=== PATIENT | male | born 1950 | race Caucasian/White ===

== ENCOUNTER → 2016-04-19 | Outpatient (CLI) | payer MEDICAID ==
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
== END ==
LOC: FIMAGING 12:34
DX: M79.89 Other specified soft tissue disorders (principal); T33.831A Superficial frostbite of right toe(s), initial encounter

== ENCOUNTER 2017-05-12 17:02 | Inpatient (IN) | payer MEDICAID, OTHER ==
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
[2017-05-12 19:39] LABS: PLATELET COUNT 243 10^3/uL (150-400)
[2017-05-12] MEDS ORDERED: VANCOMYCIN HCL/NORMAL SALINE 250 ML IV ONE (20:28)
[2017-05-12] MEDS ORDERED: IBUPROFEN 200 MG TAB PO PRN (20:33)
[2017-05-12] MEDS ORDERED: ONDANSETRON DISINTEGRATING 4 MG TAB PO PRN (20:33)
[2017-05-12] MEDS ORDERED: ONDANSETRON 4 MG/2 ML VIAL IVP PRN (20:33)
--- NOTE | 2017-05-12 21:53 | PDGENHP ---
History and Physical - Chief Complaint Acute leg pain - History of Present Illness Primary care provider: Dr. Ayala [facility] HPI: 66-year-old male presenting with acute leg pain located in the bilateral distal lower extremities with associated weeping along the dorsal aspect of the feet, dusky hue to digits 1-3 on the right and digit 1 on the left, and lymphangitic streaking located along the medial surface of the bilateral lower extremities. The patient reports the onset of symptoms was approximately 1 week ago and was associated with subjective fevers and chills. Duration has been persistent thereafter. The pain is exacerbated by standing and ambulating. The pain is alleviated by rest. The patient does not like narcotic pain medications and does not want to receive any at this time. He has otherwise been taking all of his home medications. [place] and has had regular exposure to the cold. 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 Scabies - Surgical History Additional surgical history: No lower extremity surgeries - Family History Additional family history: Patient does not know of any family illnesses - Social History Smoking Status: Heavy smoker Alcohol Use: Heavy (Recently 120 days sober, the patient recently relapsed) Drug Use: None Additional social history: Homeless, [place] bridge Review of Systems Review of Systems: ROS: 10pt was reviewed & negative except for what was stated in HPI & below Cardiac: Reports: edema (Bilateral lower extremity) Muscolosketal: Reports: other (Bilateral leg pain) Skin: Reports: change in color (Lymphangitic streaking bilateral lower extremities), other (Weeping along the toes, dusky appearance) Physical Exam Physical Exam: Temp Pulse Resp BP Pulse Ox 36.7 C 90 16 148/76 H 99 05/12/17 17:11 05/12/17 17:11 05/12/17 17:11 05/12/17 17:11 05/12/17 17:11 Constitutional: no apparent distress, not in pain, chronically ill appearing, uncomfortable Eyes: PERRL, anicteric sclera, EOMI Ears, Nose, Mouth, Throat: moist mucous membranes, hearing normal, ears appear normal, no oral mucosal ulcers Cardiovascular: edema (Trace bilateral lower extremity), other (Diminished pulses bilateral dorsalis pedis), No systolic murmur, No irregularly irregular, No tachycardia Respiratory: reduced air movement (On expiration bilaterally), No expiratory wheeze, No inspiratory crackles, No bronchial breath sounds, No respiratory distress Gastrointestinal: normoactive bowel sounds, distension (Moderate), No tenderness , No guarding Skin: other (Some scattered abrasions bilateral lower extremities, erythema along the dorsal aspects of the feet with dusky appearance the 1st 3 digits on the right, 1st digit on the left, open weeping sores on the dorsum of the right foot) Musculoskeletal: other (Limited dorsiflexion bilateral feet secondary to soft tissue edema and pain) Neurologic: AAOx3, other (Bilateral upper extremity tremulousness), No sensation intact bilaterally (Paresthesias distal bilateral lower extremities along the toes), No weakness (Motor strength 5/5 bilateral hip flexion), No asterixes Psychiatric: interacting appropriately, not anxious, not encephalopathic, thought process linear Lymph, Heme, Immunologic: lymphangitic streaking (Bilateral calves, nontender, shoddy lymph nodes bilateral inguinal chains) Lab Data & Imaging Review 05/12/17 19:27 05/12/17 19:27 WBC 16.12 10^3/uL (3.80-9.50) H 05/12/17 19:27 RBC 3.66 10^6/uL (4.40-6.38) L 05/12/17 19:27 Hgb 10.8 g/dL (13.7-17.5) L 05/12/17 19:27 Hct 32.4 % (40.0-51.0) L 05/12/17 19:27 MCV 88.5 fL (81.5-99.8) 05/12/17 19: MCH 29.5 pg (27.9-34.1) 05/12/17 19:27 MCHC 33.3 g/dL (32.4-36.7) 05/12/17: RDW 14.3 % (11.5-15.2) 05/12/17: Plt Count 243 10^3/uL (150-400) 05/12/17 MPV 9.5 fL (8.7-11.7) 05/12/17: Neut % (Auto) 82.8 % (39.3-74.2) H 05/12/17: Lymph % (Auto) 8.7 % (15.0-45.0) L 05/12/17: [place] % (Auto) 7.6 % (4.5-13.0) 05/12/17: Eos % (Auto) 0.1 % (0.6-7.6) L 05/12/17: Baso % (Auto) 0.2 % (0.3-1.7) L 05/12/17 Nucleat RBC Rel Count 0.0 % (0.0-0.2) 05/12/17 Absolute Neuts (auto) 13.34 10^3/uL (1.70-6.50) H 05/12/17: Absolute Lymphs (auto) 1.41 10^3/uL (1.00-3.00) 05/12/17: Absolute Monos (auto) 1.23 10^3/uL (0.30-0.80) H 05/12/17: Absolute Eos (auto) 0.02 10^3/uL (0.03-0.40) L 05/12/17: Absolute Basos (auto) 0.03 10^3/uL (0.02-0.10) 05/12/17: Absolute Nucleated RBC 0.00 10^3/uL (0-0.01) 05/12/17 Immature Gran % 0.6 % (0.0-1.1) 05/12/17: Immature Gran # 0.09 10^3/uL (0.00-0.10) 05/12/17: Sodium 135 mEq/L (135-145) 05/12/17 19:27 Potassium 3.9 mEq/L (3.5-5.2) 05/12/17: Chloride 98 mEq/L (97-110) 05/12/17: Carbon Dioxide 19 mEq/l (22-31) L 05/12/17: Anion Gap 18 mEq/L (8-16) H 05/12/17: BUN 14 mg/dL (7-23) 05/12/17: Creatinine 1.0 mg/dL (0.7-1.3) 05/12/17 19: Estimated GFR > 60 05/12/17: Glucose 98 mg/dL (70-100) 05/12/17: Calcium 9.0 mg/dL (8.5-10.4) 05/12/17 19:27 Assessment & Plan Assessment: 66-year-old male presents with bilateral lower extremity cellulitis in the setting of bilateral lower extremity wounds in the setting of exposure Plan: 1. Cellulitis. Acute, new problem this provider, further workup indicated. Located in the bilateral lower extremities, very clearly associated with skin sloughing and skin breakdown on the right lower extremity, less obvious on the left lower extremity, but both ft definitely have confluency erythema along the dorsum with bilateral lymphangitis streaking, and the patient has significant exposure to the elements and small areas of ulcerations -discussed with Dr. Elkin Hobson, given the extent of the infection, and many encounters with the healthcare system, the patient is at risk for MRSA, we agreed to administer IV vancomycin and gauge effect -get ID consultation -blood culture sent, monitor white blood cell count, currently does not have evidence of sepsis -get x-rays as initial evaluation of possible osteomyelitis underneath the distal dusky toes -get arterial brachial index given the possibility of vascular wounds, if unable to obtain, then get CT angio with runoff -get wound consultation 2. Neuropathy. 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 Alcoholism. Chronic, reviewed outside records including 09/04/2015 discharge summary by Maura Thomas, she discussed patient's reluctance to discontinue alcohol at that time, we have counseled the patient heavily in the past regarding the effect of his alcoholism on his mobility and strength, and given that the patient is currently being admitted for lower extremity pain and difficulty ambulating, recommend complete sobriety -placed on CIMT protocol 4. COPD. No evidence of acute exacerbation, continue monitor 5. Hypertension. Chronic, hold lisinopril given the patient is currently tachycardic and fighting off infection Diet. Regular Prophylaxis. High risk patient, Lovenox 40 Code. Full Disposition. Anticipated discharge uncertain this time, anticipated length stay is greater than 48 hr warranting inpatient admission status for reasonable medical necessity including severe cellulitis requiring infectious disease, wound care consultation, possible general surgery depending on what the workup reveals.
[2017-05-12] MEDS ORDERED: LORazepam 1 MG TAB PO PRN (22:21)
[2017-05-12] MEDS ORDERED: LORazepam 2 MG/ML INJ IVP PRN (22:21)
[2017-05-12] MEDS: GABAPENTIN 300 MG CAP PO SCH (22:58)
--- NOTE | 2017-05-12 23:48 | PDMN ---
Medical Necessity Medical necessity: C/M review: Patient meets INPT criteria under [facility] M-70 Cellultiis; Acute and persistent bilateral lower extremity severe cellulitis, WBC 16.12, requiring planned Infectious disease consult, Wound care consult, IV Thiamine, ongoing IV Vancomycin, CIWA protocol, acute inpt PT/OT, comorbid neuropathy, alcoholism, COPD, hypertension, patient heavy smoker, homelessness. MD anticipates > 2 MN LOS for ongoing med nec for eval and TX of above.
[2017-05-13 05:34] LABS: PLATELET COUNT 233 10^3/uL (150-400)
[2017-05-13] MEDS: ENOXAPARIN 40 MG/0.4 ML SYR SC SCH (09:31)
[2017-05-13] MEDS: VANCOMYCIN HCL/NORMAL SALINE 250 ML IV SCH ×2 (09:31→21:29)
[2017-05-13] MEDS: ASPIRIN EC 81 MG TAB PO SCH (09:31)
[2017-05-13] MEDS: SERTRALINE HCL 100 MG TAB PO SCH (09:31)
[2017-05-13] MEDS ORDERED: ALTEPLASE 2 MG VIAL IVP PRN (09:53)
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
--- NOTE | 2017-05-13 11:14 | HOSPPROG ---
Hospitalist Progress Note Assessment/Plan: 66-year-old male presents with bilateral lower extremity cellulitis in the setting of bilateral lower extremity wounds in the setting of exposure. Today is my 1st encounter with the patient. Reviewed his care with Dr Williamson. * bilateral foot cellulitis with associated lymphangitic streaking -on vancomycin/ see Dr Williamson's consult -blood cx pending -culture of large ulceration sent *Homelessness -needs shoes, case management aware * alcohol use and abuse -on [facility] protocol -usually drinks vodka, prefers to abstain at this time * COPD -no exacerbation * hypertension -bp overall stable * neuropathy -chronic/on gabapentin *anemia -will follow *dvt prophylaxis: ambulation, consider lmwh if needed Subjective: [place]tar has no complaints. Objective: Vital Signs Temp Pulse Resp BP Pulse Ox 37.0 C 87 16 147/66 H 94 05/13/17 07:36 05/13/17 07:36 05/13/17 07:36 05/13/17 07:36 05/13/17 07:36 Laboratory Results 05/13/17 05:00 05/13/17 05:00 - Physical Exam Constitutional: not in pain, chronically ill appearing Eyes: PERRL Ears, Nose, Mouth, Throat: hearing normal Cardiovascular: regular rate and rhythym Respiratory: no respiratory distress Gastrointestinal: normoactive bowel sounds Skin: warm, other (bilateral big toes dusky, skin cool, ulcer on bottom right foot) Musculoskeletal: full muscle strength Neurologic: AAOx3 Psychiatric: interacting appropriately ICD10 Worksheet Patient Problems: Problems Problem Status Onset Cellulitis Acute Acute hypoxemic respiratory failure Acute Alcohol intoxication Acute Alcohol withdrawal Acute Bronchitis Acute Chronic obstructive pulmonary disease with acute exacerbation Acute Weakness Acute
[2017-05-13] MEDS: THIAMINE HCL 500 MG in NS 250 ML IV SCH (14:04)
[2017-05-13] MEDS ORDERED: LIDOCAINE 1% 300 MG/30 ML SDV ONE (14:06)
[2017-05-13] MEDS: ACETAMINOPHEN 325 MG TAB PO PRN (16:37)
--- NOTE | 2017-05-13 16:48 | ASMTCMCOM ---
CM Note CM Note Notes: Pt is a homeless gentleman who has a hx of etoh, had been sober but recently had a relapse. Pt [place] and now has bilateral foot cellulitis. Pt thinks it may be due to ill fitting shoes, MD request CM to find pt some better shoes. CM attempted to speak w/pt to ask shoe size but he was fast asleep. He is currently on IV abx, CM w/f. PT recommends SNF, OT pending CM will continue to follow, Medicaid in chart but pt is 66, wondering if he has Medicare. DC Plan: TBD Date Signed: 05/13/2017 04:48 PM Electronically Signed By:Prachi Hermosillo RN
[2017-05-13] MEDS: VANCOMYCIN 1 GM in NS 250 ML IV SCH ×2 (20:26→20:36)
[2017-05-13] MEDS: GABAPENTIN 300 MG CAP PO SCH (20:26)
[2017-05-14 05:07] LABS: PLATELET COUNT 226 10^3/uL (150-400)
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
[2017-05-14] MEDS: ENOXAPARIN 40 MG/0.4 ML SYR SC SCH (08:52)
[2017-05-14] MEDS: THIAMINE HCL 500 MG in NS 250 ML IV SCH (08:52)
[2017-05-14] MEDS: SERTRALINE HCL 100 MG TAB PO SCH (08:53)
[2017-05-14] MEDS: ASPIRIN EC 81 MG TAB PO SCH (08:53)
[2017-05-14] MEDS: VANCOMYCIN 1 GM in NS 250 ML IV SCH (11:00)
--- NOTE | 2017-05-14 11:17 | WOCRNPDOC ---
[facility] Advanced Assessment Note - Skin Integrity Problem, Advanced Assess Right Toe Dressing Type: Open to Air Exudate Amount: Scant (on dorsum of R 3rd toe) Exudate Color: Reddish/Yellow Exudate Characteristic(s): Dried Ant Wound Tissue: Ecchymotic (dusky, consistent w/ frostbite) Ant Wound Swelling: Mild Wound Bed Color: Purple, Red Wound Bed Constitution: De-roofed Serous Blister, Intact Sanguineous Blister Site Odor: None Site Measurement - Head-to-Toe Length X Width X Depth (cm): R 1st toe(plantar): [id number]. R 1st toe (dorsal) 1cmx1.2cmx blister. R 2nd toe (medial): 0.5cmx0.6cmx blister. R 2nd toe (dorsal): [id number] blister. R 3rd toe ( dorsal): 0.5cmx0.5cmx0.1cm Pulse Location & Description: faint DP palpable Extremity Temperature: Warm Skin Integrity Problem Comment: Intact blisters noted to both dorsal and plantar aspects of patient's R 1st, 2nd, and 3rd toes, apperance consistent w/ frostbite. Underlying skin is purple, dusky, on distal apects of toes. Blisters are mostly intact, w/ exception of R 3rd toe. They appear to be serous-filled, indicating that the damage might be superficial. Patient does c/o pain and tenderness during assessment, extending onto to dorsum of his R foot. No significant swelling or ant-wound erythema. Even though faint DP pulse is palpable, general concerns about imparting any moisture to these tissues in the event that there is underlying arterial compromise. Recommend applying Povidone- Iodine when blisters open, and covering open areas w/ Telfa secured w/ Francisco Javier. Wound care will follow up with patient again on Tuesday 05/16.
[2017-05-14] MEDS: TAMSULOSIN HCL 0.4 MG CAP PO SCH (12:12)
--- NOTE | 2017-05-14 12:15 | HOSPPROG ---
Hospitalist Progress Note Assessment/Plan: 66-year-old male presents with bilateral lower extremity cellulitis in the setting of bilateral lower extremity wounds in the setting of exposure. Today is my 1st encounter with the patient. Reviewed his care with Dr Williamson. * bilateral foot cellulitis with associated lymphangitic streaking -on vancomycin/ see Dr Williamson's consult -blood cx no growth -has Doppler pulses/ both feet -culture of large ulceration sent -will get a noninvasive arterial study to further evaluate *Homelessness -needs shoes, case management aware * alcohol use and abuse -on [facility] protocol -usually drinks vodka, prefers to abstain at this time * COPD -no exacerbation *urinary retention -trial of flomax * hypertension -bp overall stable * neuropathy -chronic/on gabapentin *anemia -OB stools -check iron levels -will follow *dvt prophylaxis: ambulation, Subjective: Avtar has significant pain when his feet are touched. Objective: Vital Signs Temp Pulse Resp BP Pulse Ox 37.2 C 91 18 154/76 H 95 05/14/17 11:45 05/14/17 11:45 05/14/17 11:45 05/14/17 11:45 05/14/17 11:45 Microbiology 05/13/17 09:55 Gram Stain - Final Foot - Swab Laboratory Results 05/14/17 04:30 05/14/17 04:30 05/13/17 05/14/17 05/15/17 05:59 05:59 05:59 Intake Total 500 Output Total 700 Balance -200 - Physical Exam Constitutional: chronically ill appearing, No not in pain (to the feet area w touch) Ears, Nose, Mouth, Throat: hearing normal Cardiovascular: regular rate and rhythym Respiratory: no respiratory distress Skin: warm, other (both big toes are dusky in color, unable to palp pulses but can doppler them) Musculoskeletal: generalized weakness Neurologic: AAOx3 Psychiatric: interacting appropriately ICD10 Worksheet Patient Problems: Problems Problem Status Onset Cellulitis Acute Acute hypoxemic respiratory failure Acute Alcohol intoxication Acute Alcohol withdrawal Acute Bronchitis Acute Chronic obstructive pulmonary disease with acute exacerbation Acute Weakness Acute
[2017-05-14] MEDS: GABAPENTIN 300 MG CAP PO SCH (21:55)
[2017-05-14] MEDS: VANCOMYCIN HCL/NORMAL SALINE 250 ML IV SCH (21:55)
[2017-05-14] MEDS: FERROUS SULFATE 325 MG TAB PO SCH (21:55)
[2017-05-15 03:01] LABS: HIV TYPE 1 AND 2 NEGATIVE (NEGATIVE)
--- NOTE | 2017-05-15 09:48 | PCMIDPN ---
Assessment/Plan: Assessment: Bilateral lower extremity foot duskiness with presentation with right lower extremity lymphangitis. Lymphangitis is now resolved. The duskiness in his toes I believe is secondary to frostbite and frostnip. I think it is reasonable to do the angiogram runoff study to evaluate large vessel flow. Given that his DP pulses bilaterally or Doppler only I suspect we may see some arterial narrowing. I do not believe however that that would be causative of his foot and toe duskiness and his enormous sensitivity to touch. Plan: 1. Continue IV vancomycin empirically. 2. Await MRSA nasal swab result. 3. Follow clinical course and arterial test results. 05/15/17 09:45 Subjective: Patient is resting comfortably in his hospital bed. He notes that his right lower extremity erythema and lymphangitis has resolved. Still is exquisitely sensitive in both his feet and lower legs to light touch. No fever or chills. Objective: Vancomycin # 1 Vital Signs Temp Pulse Resp BP Pulse Ox 36.6 C 84 16 148/70 H 94 05/15/17 07:32 05/15/17 07:32 05/15/17 07:32 05/15/17 07:32 05/15/17 07:32 Microbiology 05/13/17 09:55 Gram Stain - Final Foot - Swab Laboratory Results 05/14/17 04:30 05/14/17 04:30 05/14/17 05/15/17 05/16/17 05:59 05:59 05:59 Intake Total 500 440 Output Total 700 2500 Balance -200 -0 - Physical Exam General Appearance: WD/WN, alert, no apparent distress, non-toxic Respiratory: lungs clear, No respiratory distress Cardiac/Chest: regular rate, rhythm, No tachycardia Extremities: swelling, No non-tender, No normal inspection Peripheral Pulses: 0: dorsalis-pedis (R) (Doppler), dorsalis-pedis (L) (Doppler) Skin: normal color, warm/dry, No rash Neuro/Psych: alert, normal mood/affect, oriented x 3 ICD10 Worksheet Patient Problems: Problems Problem Status Onset Cellulitis Acute Acute hypoxemic respiratory failure Acute Alcohol intoxication Acute Alcohol withdrawal Acute Bronchitis Acute Chronic obstructive pulmonary disease with acute exacerbation Acute Weakness Acute
[2017-05-15] MEDS: ASCORBIC ACID 500 MG TAB PO SCH (09:49)
[2017-05-15] MEDS: FERROUS SULFATE 325 MG TAB PO SCH ×2 (09:49→20:48)
[2017-05-15] MEDS: ASPIRIN EC 81 MG TAB PO SCH (09:49)
[2017-05-15] MEDS: ENOXAPARIN 40 MG/0.4 ML SYR SC SCH (09:50)
[2017-05-15] MEDS: TAMSULOSIN HCL 0.4 MG CAP PO SCH (09:50)
[2017-05-15] MEDS: THIAMINE HCL 500 MG in NS 250 ML IV SCH (09:50)
[2017-05-15] MEDS: SERTRALINE HCL 100 MG TAB PO SCH (09:50)
[2017-05-15] MEDS: LISINOPRIL 40 MG TAB PO SCH (11:13)
[2017-05-15] MEDS: VANCOMYCIN HCL/NORMAL SALINE 250 ML IV SCH ×2 (11:13→20:48)
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
--- NOTE | 2017-05-15 17:04 | WOCRNPDOC ---
WOCRN Advanced Assessment Note - Skin Integrity Problem, Advanced Assess Right Toe Dressing Type: Francisco Javier, Telfa Dressing Description: Clean/Dry, Intact Exudate Amount: Minimal Exudate Characteristic(s): Serosanguinous Integumentary Issue Intervention: Visualized Under Dressing Skin Integrity Problem Comment: Right foot toes with blistering that are mostly still intact but starting open on dorsal 3rd and second toes. Great toe intact. Telfa between toes is sticking to wounds. Will change order to mepilex transfer woven between toes. Patient walked with PT today. Wound care will round again later this week.
[2017-05-15] MEDS: ACETAMINOPHEN 325 MG TAB PO PRN (19:06)
[2017-05-15] MEDS: GABAPENTIN 300 MG CAP PO SCH (20:48)
[2017-05-16] MEDS: ENOXAPARIN 40 MG/0.4 ML SYR SC SCH (09:03)
[2017-05-16] MEDS: THIAMINE HCL 100 MG TAB PO SCH (09:03)
[2017-05-16] MEDS: FERROUS SULFATE 325 MG TAB PO SCH ×2 (09:03→20:29)
[2017-05-16] MEDS: ASPIRIN EC 81 MG TAB PO SCH (09:03)
[2017-05-16] MEDS: LISINOPRIL 40 MG TAB PO SCH (09:03)
[2017-05-16] MEDS: TAMSULOSIN HCL 0.4 MG CAP PO SCH (09:04)
[2017-05-16] MEDS: ASCORBIC ACID 500 MG TAB PO SCH (09:04)
[2017-05-16] MEDS: SERTRALINE HCL 100 MG TAB PO SCH (09:04)
[2017-05-16] MEDS ORDERED: VANCOMYCIN 1 GM in NS 250 ML IV SCH (09:30)
--- NOTE | 2017-05-16 10:38 | ASMTCMCOM ---
CM Note CM Note Notes: Case Management will be picking up size 10 shoes for the patient today. CM will follow. Date Signed: 05/16/2017 10:38 AM Electronically Signed By:Karyn Adorno LCSW
--- NOTE | 2017-05-16 12:15 | HOSPPROG ---
Hospitalist Progress Note Assessment/Plan: 66-year-old male presents with bilateral lower extremity cellulitis in the setting of bilateral lower extremity wounds in the setting of exposure. * bilateral foot cellulitis with associated lymphangitic streaking -vancomycin dc today -blood cx no growth -has Doppler pulses/ both feet -culture of large ulceration sent -underlying frostbite *Moderate peripheral vascular disease -reviewed LINDSEY study which is around .70 -will ask surgeon to see, he has had a long hx of significant pain -on aspirin, may benefit from Plavix *Homelessness -needs shoes, case management aware * alcohol use and abuse -no s/sx of withdrawal, will dc CIWA * COPD -no exacerbation *urinary retention -trial of Flomax w good results * hypertension -bp overall stable * neuropathy -chronic/on gabapentin *anemia/ iron deficiency -added oral iron w Vitamin c -OB stools -needs f/u in regards to colonoscopy, but needs treatment for the above *dvt prophylaxis: ambulation *Plan: ask surgery to see Subjective: Avtar says his feet hurt when he walks but the pain subsides after a bit. Objective: Vital Signs Temp Pulse Resp BP Pulse Ox 36.8 C 75 16 104/71 94 05/16/17 08:00 05/16/17 08:00 05/16/17 08:00 05/16/17 09:03 05/16/17 08:00 Microbiology 05/13/17 09:55 Gram Stain - Final Foot - Swab Wound Culture - Final Staphylococcus Lugdunensis Laboratory Results 05/14/17 04:30 05/14/17 04:30 05/15/17 05/16/17 05/17/17 05:59 05:59 05:59 Intake Total 440 1260 Output Total 2500 2875 Balance -2059 - Physical Exam Constitutional: chronically ill appearing, No not in pain Eyes: PERRL Ears, Nose, Mouth, Throat: hearing normal Cardiovascular: regular rate and rhythym Respiratory: no respiratory distress Skin: warm, other (big toes dusky, feet warm) Musculoskeletal: generalized weakness Neurologic: AAOx3 Psychiatric: interacting appropriately, not anxious ICD10 Worksheet Patient Problems: Problems Problem Status Onset Cellulitis Acute Acute hypoxemic respiratory failure Acute Alcohol intoxication Acute Alcohol withdrawal Acute Bronchitis Acute Chronic obstructive pulmonary disease with acute exacerbation Acute Weakness Acute
[2017-05-16] MEDS ORDERED: IOPAMIDOL (ISOVUE-370) 150 ML BTL IV ONE (14:41)
--- NOTE | 2017-05-16 16:37 | ASMTCMCOM ---
CM Note CM Note Notes: Met with patient to give him shoes and discuss possible rehab. Maura Thomas NP is concerned with patient having peripheral vascular disease and wants patient to do some rehab if possible. Patient has Medicare and is working with [facility] to get his social security reinstated. Patient is also working with the [facility] program for housing, Lu Chaprmarta ([phone]). We will need to call her tomorrow to coordinate and make sure they are aware of timelines for care. A referral was sent to [facility] for SNF rehab at Maura's request. OT/PT both recommending SNF rehab. CM will follow. Date Signed: 05/16/2017 04:36 PM Electronically Signed By:Karyn Adorno LCSW
--- NOTE | 2017-05-16 16:43 | PCMIDPN ---
Assessment/Plan: Assessment/Plan: * Bilateral lower extremity duskiness likely associated with frostbite/watkins nip and initial presentation with right lower extremity lymphangitis: Lymphangitis fully resolved. Toes appear to be most consistent with frostbite at this point rather than residual cellulitis. Further evaluation underway for possible superimposed peripheral vascular disease. Given resolution of lymphangitis will discontinue vancomycin therapy of which he has received 4 days. Continue to monitor clinical exam to ensure no recurrent cellulitis post discontinuation of antibiotic therapy. 05/16/17 16:38 Subjective: Patient complains of exquisite pain over both feet and toes. Objective: Vital Signs Temp Pulse Resp BP Pulse Ox 36.5 C 73 18 162/77 H 97 05/16/17 15:25 05/16/17 15:25 05/16/17 15:25 05/16/17 15:25 05/16/17 15:25 Microbiology 05/13/17 18:12 MRSA Culture - Final Nose - Swab 05/13/17 09:55 Gram Stain - Final Foot - Swab Wound Culture - Final Staphylococcus Lugdunensis Laboratory Results 05/14/17 04:30 05/14/17 04:30 05/15/17 05/16/17 05/17/17 05:59 05:59 05:59 Intake Total 440 1260 Output Total 2500 2875 Balance -0 -1614 Vancomycin # 4 Blood cultures x2 no growth Wound culture Staph lugdunensis - Physical Exam General Appearance: alert, no apparent distress EENT: No scleral icterus, No thrush Extremities: inflammation (bilateral dusky hue to multiple toes with blistering of 3rd toe on left; no active cellulitis present) Abdomen: non-tender, No distended Lymphatic: other (No lymphangitis in either lower extremity) ICD10 Worksheet Patient Problems: Problems Problem Status Onset Cellulitis Acute Acute hypoxemic respiratory failure Acute Alcohol intoxication Acute Alcohol withdrawal Acute Bronchitis Acute Chronic obstructive pulmonary disease with acute exacerbation Acute Weakness Acute
[2017-05-16] MEDS: ACETAMINOPHEN 325 MG TAB PO PRN ×2 (17:37→21:50)
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
[2017-05-16] MEDS: GABAPENTIN 300 MG CAP PO SCH (20:29)
[2017-05-16] MEDS: oxyCODONE IR 5 MG TAB PO PRN (21:52)
[2017-05-17] MEDS: ASCORBIC ACID 500 MG TAB PO SCH (09:02)
[2017-05-17] MEDS: SERTRALINE HCL 100 MG TAB PO SCH (09:02)
[2017-05-17] MEDS: THIAMINE HCL 100 MG TAB PO SCH (09:02)
[2017-05-17] MEDS: LISINOPRIL 40 MG TAB PO SCH (09:02)
[2017-05-17] MEDS: TAMSULOSIN HCL 0.4 MG CAP PO SCH (09:02)
[2017-05-17] MEDS: ASPIRIN EC 81 MG TAB PO SCH (09:02)
[2017-05-17] MEDS: FERROUS SULFATE 325 MG TAB PO SCH ×2 (09:02→20:16)
[2017-05-17] MEDS: ENOXAPARIN 40 MG/0.4 ML SYR SC SCH (09:02)
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
[2017-05-17] MEDS: FLUTICASONE NASAL 120 SPRAYS/16 GM MDI EACHNARE SCH (10:47)
--- NOTE | 2017-05-17 11:04 | WOCRNPDOC ---
WOCRN Advanced Assessment Note - Skin Integrity Problem, Advanced Assess Right Toe Dressing Type: Kerlix, Mepilex Transfer Dressing Description: Clean/Dry, Intact (some pieces of mepilex transfer missing. Please use one long strip, not pieces.) Exudate Amount: Minimal Exudate Characteristic(s): Serosanguinous Integumentary Issue Intervention: Visualized Under Dressing Tonya Wound Tissue: Erythema Tonya Wound Swelling: Moderate Wound Bed Constitution: Intact Serous Filled Blister (on most toes), De-roofed Serous Blister (especially on dorsal second and third digits. ) Site Odor: Slight, Musky Skin Integrity Problem Comment: Evolving frostbite. Some areas have opened on dorsal toes but most of blisters are still intact. Patient reports both numbness and pain in foot. Also reports hx of previous frostbite on bilateral great toes. Continue current plan of care. Discussed with Trey jeffrey RN. Wound care will round again next week.
--- NOTE | 2017-05-17 12:58 | PCMIDPN ---
Assessment/Plan: Lymphangitis associated with frostbite, continues to be resolved off antibiotics for almost 24 hr. S/p vancomycin 05/12 through 05/16. Continue off of antibiotics. 05/12 blood cultures are negative to date. Wound culture from foot shows Staph lugdunensis, if recurrent infection could direct therapy to that organism. Id to follow peripherally. Subjective: Patient doing reasonably well reports the worst part of his pain is on the dorsum of his foot. Objective: Vital Signs Temp Pulse Resp BP Pulse Ox 36.9 C 81 18 107/63 96 05/17/17 07:11 05/17/17 07:11 05/17/17 07:11 05/17/17 09:02 05/17/17 07:11 Microbiology 05/13/17 18:12 MRSA Culture - Final Nose - Swab 05/13/17 09:55 Gram Stain - Final Foot - Swab Wound Culture - Final Staphylococcus Lugdunensis Laboratory Results 05/14/17 04:30 05/14/17 04:30 05/16/17 05/17/17 05/18/17 05:59 05:59 05:59 Intake Total 1260 250 Output Total 0957 2355 Balance -1616 -2974 - Physical Exam General Appearance: alert, no apparent distress Respiratory: No accessory muscle use Cardiac/Chest: regular rate, rhythm Extremities: other (Dressing in place and just changed over toes but no residual erythema or lymphangitis outside of dressing (which just isolated to the distal portion of his foot)), No inflammation, No swelling Neuro/Psych: alert, normal mood/affect, oriented x 3 ICD10 Worksheet Patient Problems: Problems Problem Status Onset Cellulitis Acute Acute hypoxemic respiratory failure Acute Alcohol intoxication Acute Alcohol withdrawal Acute Bronchitis Acute Chronic obstructive pulmonary disease with acute exacerbation Acute Weakness Acute
--- NOTE | 2017-05-17 12:58 | PDIAF ---
- Diagnosis Code Status: Full Code - Medication Management Discharge Medications: Medications to Continue on Transfer Lisinopril [Zestril 40 mg (*)] 40 mg PO DAILY #5 tab 06/26/15 [Last Taken ] Aspirin EC [Aspirin EC 81 mg (*)] 81 mg PO DAILY 05/12/17 [Last Taken 05/11/17] Sertraline HCl [Zoloft 100mg (*)] 100 mg PO DAILY 05/12/17 [Last Taken 05/11/17] Discharge Medications: Refer to the Discharge Home Medication list for PRN reason. - Orders Isolation Type: None - Follow Up Care Current Providers and Referrals: William Redd MD [Medical Doctor] - follow up in 1 week Patient,NotPresent [Primary Care Provider] - As per Instructions
[2017-05-17] MEDS: oxyCODONE IR 5 MG TAB PO PRN ×2 (13:44→20:16)
--- NOTE | 2017-05-17 13:48 | HOSPPROG ---
Hospitalist Progress Note Assessment/Plan: 66-year-old male presents with bilateral lower extremity cellulitis in the setting of bilateral lower extremity wounds in the setting of exposure. * bilateral foot cellulitis with associated lymphangitic streaking -vancomycin dc -resolved -blood cx no growth -has Doppler pulses/ both feet -culture of large ulceration sent -underlying frostbite *Moderate peripheral vascular disease w claudication -reviewed LINDSEY study which is around .70 -appreciate surgery -on aspirin, needs to permanently stop smoking -may require bypass, further f/u with surgery *Homelessness -needs shoes, case management aware * alcohol use and abuse -no s/sx of withdrawal, will dc CIWA * COPD -no exacerbation *urinary retention -trial of Flomax w good results * hypertension -bp overall stable * neuropathy -chronic/on gabapentin *anemia/ iron deficiency -added oral iron w Vitamin c -OB stools -needs f/u in regards to colonoscopy, but needs treatment for the above *dvt prophylaxis: ambulation *Plan: can dc, CM looking at options,he has Medicaid Subjective: Avtar is feeling overall well, but has some post sinus gtt causing him to cough. Objective: Vital Signs Temp Pulse Resp BP Pulse Ox 36.9 C 81 18 107/63 96 05/17/17 07:11 05/17/17 07:11 05/17/17 07:11 05/17/17 09:02 05/17/17 07:11 Microbiology 05/13/17 18:12 MRSA Culture - Final Nose - Swab 05/13/17 09:55 Gram Stain - Final Foot - Swab Wound Culture - Final Staphylococcus Lugdunensis Laboratory Results 05/14/17 04:30 05/14/17 04:30 05/16/17 05/17/17 05/18/17 05:59 05:59 05:59 Intake Total 1260 250 Output Total 1555 5116 Balance -4125 -5114 - Physical Exam Constitutional: no apparent distress, chronically ill appearing Eyes: PERRL Ears, Nose, Mouth, Throat: hearing normal Cardiovascular: regular rate and rhythym Respiratory: no respiratory distress Skin: warm Musculoskeletal: generalized weakness Neurologic: AAOx3 Psychiatric: interacting appropriately ICD10 Worksheet Patient Problems: Problems Problem Status Onset Cellulitis Acute Acute hypoxemic respiratory failure Acute Alcohol intoxication Acute Alcohol withdrawal Acute Bronchitis Acute Chronic obstructive pulmonary disease with acute exacerbation Acute Weakness Acute
[2017-05-17 14:25] VITALS: RESP 16
--- NOTE | 2017-05-17 16:53 | ASMTCMCOM ---
CM Note CM Note Notes: Per Mauro at [facility], Pt.'s admission review revealed Pt. is a registered sex offender. Will not be a candidate for SNF. Daphne let hospitalist know. Daphne called Pt's procurement coordinator through the [facility] ([facility]) PATH program, Lu to see if there are any options for housing at d/c. [place] to [place] [facility]. Asked Lu to call [facility]. FRIEDA/ZOE to follow. Date Signed: 05/17/2017 04:53 PM Electronically Signed By:Gissel Lucero LCSW
[2017-05-17] MEDS: GABAPENTIN 300 MG CAP PO SCH (20:15)
[2017-05-18] MEDS: oxyCODONE IR 5 MG TAB PO PRN ×3 (01:25→20:20)
[2017-05-18] MEDS: LISINOPRIL 40 MG TAB PO SCH (09:43)
[2017-05-18] MEDS: ASCORBIC ACID 500 MG TAB PO SCH (09:43)
[2017-05-18] MEDS: TAMSULOSIN HCL 0.4 MG CAP PO SCH (09:43)
[2017-05-18] MEDS: SERTRALINE HCL 100 MG TAB PO SCH (09:43)
[2017-05-18] MEDS: ENOXAPARIN 40 MG/0.4 ML SYR SC SCH (09:43)
[2017-05-18] MEDS: FERROUS SULFATE 325 MG TAB PO SCH ×2 (09:44→20:17)
[2017-05-18] MEDS: ASPIRIN EC 81 MG TAB PO SCH (09:44)
[2017-05-18] MEDS: THIAMINE HCL 100 MG TAB PO SCH (09:44)
[2017-05-18] MEDS: FLUTICASONE NASAL 120 SPRAYS/16 GM MDI EACHNARE SCH (09:45)
--- NOTE | 2017-05-18 11:38 | HOSPPROG ---
Hospitalist Progress Note Assessment/Plan: 66-year-old male presents with bilateral lower extremity cellulitis in the setting of bilateral lower extremity wounds in the setting of exposure. * bilateral foot cellulitis with associated lymphangitic streaking -resolved -blood cx no growth -has Doppler pulses/ both feet -underlying frostbite *Moderate peripheral vascular disease w claudication -reviewed LINDSEY study which is around .70 -appreciate surgery -on aspirin, needs to permanently stop smoking -may require bypass, further f/u with surgery *Homelessness -given shoes, case management aware -difficult disposition, see CM notes * alcohol use and abuse -no s/sx of withdrawal, will dc CIWA * COPD -no exacerbation *urinary retention -trial of Flomax w good results * hypertension -bp overall stable * neuropathy -chronic/on gabapentin *anemia/ iron deficiency -added oral iron w Vitamin c -OB stools negative -needs f/u in regards to colonoscopy, but needs treatment for the above *dvt prophylaxis: ambulation *Plan: can dc, CM looking at options Subjective: Avtar says his feet hurt w ambulation, but then improve. Objective: Vital Signs Temp Pulse Resp BP Pulse Ox 36.6 C 72 16 127/66 H 91 L 05/18/17 08:00 05/18/17 08:00 05/18/17 08:00 05/18/17 08:00 05/18/17 08:00 Laboratory Results 05/14/17 04:30 05/14/17 04:30 05/17/17 05/18/17 05/19/17 05:59 05:59 05:59 Intake Total 250 500 Output Total 8635 1250 Balance -1555 -647 - Physical Exam Constitutional: chronically ill appearing Eyes: PERRL Ears, Nose, Mouth, Throat: hearing normal Respiratory: no respiratory distress Gastrointestinal: normoactive bowel sounds Skin: warm Musculoskeletal: generalized weakness Neurologic: AAOx3 Psychiatric: interacting appropriately, not anxious ICD10 Worksheet Patient Problems: Problems Problem Status Onset Cellulitis Acute Acute hypoxemic respiratory failure Acute Alcohol intoxication Acute Alcohol withdrawal Acute Bronchitis Acute Chronic obstructive pulmonary disease with acute exacerbation Acute Weakness Acute
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
--- NOTE | 2017-05-18 16:45 | ASMTCMCOM ---
CM Note CM Note Notes: Today Lu from PATH program at [facility] was able to arrange for [facility] respite bed for Pt. tomorrow. Hospitalist agrees this is a good plan and Pt. is independent in his ADLs at this time. Plan to d/c to [facility]'s [facility] address in [place] for a CIS mental health evaluation before he is admitted to [facility] housing respite. Will work to d/c in am tomorrow. SW to follow for d/c POC. Date Signed: 05/18/2017 04:44 PM Electronically Signed By:Gissel Lucero LCSW
[2017-05-18] MEDS: GABAPENTIN 300 MG CAP PO SCH (20:17)
[2017-05-18 23:27] VITALS: PULSE 77; O2SAT 93
[2017-05-19 08:14] VITALS: BP 149/76; TEMP 97.9
[2017-05-19] MEDS: LISINOPRIL 40 MG TAB PO SCH (08:58)
[2017-05-19] MEDS: FERROUS SULFATE 325 MG TAB PO SCH (08:59)
[2017-05-19] MEDS: SERTRALINE HCL 100 MG TAB PO SCH (08:59)
[2017-05-19] MEDS: TAMSULOSIN HCL 0.4 MG CAP PO SCH (08:59)
[2017-05-19] MEDS: THIAMINE HCL 100 MG TAB PO SCH (08:59)
[2017-05-19] MEDS: ASCORBIC ACID 500 MG TAB PO SCH (08:59)
[2017-05-19] MEDS: ASPIRIN EC 81 MG TAB PO SCH (08:59)
[2017-05-19] MEDS: ENOXAPARIN 40 MG/0.4 ML SYR SC SCH (09:00)
[2017-05-19] MEDS: FLUTICASONE NASAL 120 SPRAYS/16 GM MDI EACHNARE SCH (09:02)
[2017-05-19] MEDS: oxyCODONE IR 5 MG TAB PO PRN (12:48)
--- NOTE | 2017-05-19 14:30 | GDS ---
[f rep st] DISCHARGE SUMMARY DISCHARGE DIAGNOSES: 1. Bilateral foot cellulitis. 2. Moderate peripheral vascular disease. 3. Homelessness. 4. Alcohol use and abuse. 5. Chronic obstructive pulmonary disease. 6. Urinary retention. 7. Hypertension. 8. Neuropathy. 9. Iron-deficiency anemia. CONSULTATIONS: 1. Surgery. 2. Wound Care. 3. Infectious Disease. PHYSICAL EXAM: GENERAL: The patient is alert. VITAL SIGNS: Afebrile at 36.6, pulse 77, respirator y rate 16, blood pressure is 149/76, he is saturating 93% on room air. I have seen and evaluated the patient on the day of discharge. HOSPITAL COURSE: The patient is a 66-year-old male who presented to the emergency room with bilatera l foot pain. He was evaluated and diagnosed with: 1. Bilateral foot cellulitis with associated lymphangitic streaking. During this hospitalization, alix french was evaluated by Surgery as well as Infectious Disease. His condition requires continued healing. He did receive therapy with Wound Care during this hospital course. He is to follow up in the outpa tient setting with General Surgery. 2. Moderate peripheral vascular disease with claudication. Again, the patient is to follow up with Surgery in the outpatient setting and may require a bypass in the future. 3. Homelessness. He will be discharged to a respite bed. 4. Alcohol use and abuse. He has no signs of withdrawal. He is stable. 5. Chronic obstructive pulmonary disease. This is stable. 6. Urinary retention. This has resolved. 7. Hypertension. We will continue his lisinopril as prescribed. 8. Neuropathy. This is stable. 9. Iron-deficiency anemia. He has been placed on supplementation, and needs to follow up with a col onoscopy in the outpatient setting. He is arranging an appointment with [facility] to establish this care. DISPOSITION: The patient will be discharged to [facility] respite bed. DISCHARGE MEDICATIONS: Have been filled and prescribed for him from [facility]. PENDING STUDIES: There are no pending studies. FOLLOWUP: Will be with General Surgery, as well as [facility]. DISCHARGE MEDICATIONS: Please refer to EMR form. I have discussed the patient's disposition at [facility] with Case Management. I spent greater than 35 minutes in the care, coordination, and management o f the patient's disposition. /[id number]/MODL
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
== END 2017-05-19 13:05 | DRG 603 ==
LOC: EDUNIT# → F3E 23:55
PROVIDERS: ADMIT Internal Medicine; ATTEND Internal Medicine
PROC: 02HV33Z Insertion of Infusion Device into Superior Vena Cava, Percutaneous Approach (ICD-10-PCS; principal; 2017-05-13)
DX: L03.115 Cellulitis of right lower limb (principal); L03.116 Cellulitis of left lower limb; I73.9 Peripheral vascular disease, unspecified; Z59.0 Homelessness; F10.10 Alcohol abuse, uncomplicated; J44.9 Chronic obstructive pulmonary disease, unspecified; R33.9 Retention of urine, unspecified; I10 Essential (primary) hypertension; D50.9 Iron deficiency anemia, unspecified; G62.9 Polyneuropathy, unspecified; Z88.0 Allergy status to penicillin; Z72.0 Tobacco use
CPT/HCPCS: 97110-GO; 97116-GP; 97162-GP; 97165-GO; 97530-GO; 97530-GP; 97535-GO; C1751; G8978-GP-CL; G8979-GP-CJ; J1650; J2997; J3370; J3411; Q9967

== ENCOUNTER 2017-05-27 13:47 | Emergency (ER) | payer OTHER ==
[2017-05-27 14:19] VITALS: BP 143/63; PULSE 102; RESP 18; TEMP 97.9; O2SAT 97
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
--- NOTE | 2017-05-27 15:45 | ASMTCMCOM ---
CM Note CM Note Notes: Patient presents to the ER with c/o pain and swelling in bilateral feet. See ER report for details. Patient recently admitted to and discharged on 05/19/17. CM and dischage notes reviewed. Patient was to follow up with his cis coordinator, Lu, at [facility] regarding respite housing. Patient was provided walker, taxi voucher, and medications MAPPED per this CM department I met with patient at this time to provide clean socks and follow up with his prior d/c plan. Patient states that he did go to [facility] at discharge but they did not have any housing/respite available. He tells me that he has not been staying at the long-term but is aware of the coordinated entry program. I have provided him with specific details for this at this time. Patient tells me that his "partner" can/will take him there tomorrow. See CM notes from 05/19/17 if needed regarding efforts and obstacles to SNF or other placement needs Date Signed: 05/27/2017 03:43 PM Electronically Signed By:Sarah Burch RN
== END 2017-05-27 15:00 | disposition home or self-care (01) ==
LOC: EDUNIT#
DX: L08.9 Local infection of the skin and subcutaneous tissue, unspecified (principal); F17.200 Nicotine dependence, unspecified, uncomplicated; J44.9 Chronic obstructive pulmonary disease, unspecified; I10 Essential (primary) hypertension

== ENCOUNTER 2017-06-23 01:04 | Emergency (ER) | payer OTHER ==
[2017-06-23 01:08] VITALS: BP 204/112; PULSE 96; RESP 16; TEMP 97.9
[2017-06-23 01:14] VITALS: O2SAT 95
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
== END 2017-06-23 01:54 | disposition home or self-care (01) ==
DX: Z02.89 Encounter for other administrative examinations (principal); I73.9 Peripheral vascular disease, unspecified; L97.529 Non-pressure chronic ulcer of other part of left foot with unspecified severity; L97.519 Non-pressure chronic ulcer of other part of right foot with unspecified severity; I10 Essential (primary) hypertension; J44.9 Chronic obstructive pulmonary disease, unspecified; F17.200 Nicotine dependence, unspecified, uncomplicated